=== PATIENT | female | born 1965 | race Caucasian/White ===

== ENCOUNTER 2018-07-15 19:34 | Emergency (ER) | payer OTHER ==
[2018-07-15 20:10] VITALS: BP 146/65
[2018-07-15] MEDS ORDERED: Ibuprofen TAB* 600 MG PO ONE (20:31)
--- NOTE | 2018-07-15 20:34 | UC ---
Respiratory Complaint HPI - HPI Summary HPI Summary: 53 yo woman with diabetes, with onset of fever and malaise yesterday. She has the care of her 2 granddaughters, who are with her this evening; states that they spent the day with a friend where she rested and the children had care. States that she feels dizzy, unwell, and she has a headache, along with cough and congestion. History of diabetes, on metformin alone and does not know how well her glucose is controlled. Coughing, and has bouts of dry heaves and brings up sputum. - History of Current Complaint Chief Complaint: UCRespiratory Stated Complaint: FEVER,COUGH Time Seen by Provider: 07/15/18 20:25 Hx Obtained From: Patient Hx Last Menstrual Period: n/a Onset/Duration: Gradual Onset, Lasting Days - 2 Pain Intensity: 7 Character: Cough: Nonproductive Aggravating Factors: Nothing Alleviating Factors: Nothing Associated Signs And Symptoms: Positive: Dyspnea, Fever, Chills, Nasal Congestion - Risk Factors Pulmonary Embolism Risk Factors: Negative Cardiac Risk Factors: Diabetes Pseudomonas Risk Factors: Negative Tuberculosis Risk Factors: Negative - Allergies/Home Medications Allergies/Adverse Reactions: Allergies Allergy/AdvReac Type Severity Reaction Status Date / Time other medications Allergy Unknown Uncoded 07/15/18 20:11 Reaction Details sulfa drugs Allergy Anaphylatic Uncoded 07/15/18 20:11 Shock Home Medications: Home Medications Citalopram TAB* [CeleXA TAB*] 20 mg PO DAILY 07/15/18 [History Confirmed ] Cyanocobalamin TAB* [Vitamin B12 TAB*] 500 mcg PO DAILY 07/15/18 [History Confirmed 07/15/18] Levothyroxine Sodium [Levoxyl] 0 mcg PO DAILY 07/15/18 [History Confirmed ] Omeprazole CAP (NF) [Prilosec CAP* 20 MG] 20 mg PO DAILY 07/15/18 [History Confirmed 07/15/18] Other Meds Pt Cannot Recall 07/15/18 [History] metFORMIN* [Glucophage 500 MG TAB *] 500 mg PO DAILY 07/15/18 [History Confirmed 07/15/18] PMH/Surg Hx/FS Hx/Imm Hx - Additional Past Medical History Additional PMH: reports many allergies but does not know what they are, but reports as severe. Endocrine History: Diabetes, Hypothyroidism Psychological History: Bipolar Disorder - Surgical History Surgical History: Yes Surgery Procedure, Year, and Place: ear tubes - Family History Known Family History: Positive: Non-Contributory - Social History Occupation: Employed Full-time - has care of her grandchildren Lives: With Family Alcohol Use: None Substance Use Type: None Smoking Status (MU): Never Smoked Tobacco Review of Systems All Other Systems Reviewed And Are Negative: Yes Constitutional: Positive: Fever, Chills, Fatigue Skin: Positive: Negative Eyes: Positive: Negative ENT: Positive: Sinus Congestion Respiratory: Positive: Shortness Of Breath, Cough Cardiovascular: Positive: Other - feels dizzy and unwell Gastrointestinal: Positive: Nausea Genitourinary: Positive: Other - urinary incontinence Motor: Positive: Weakness - generalized Musculoskeletal: Positive: Myalgia Neurological: Positive: Headache Psychological: Positive: Other - just got custody of her grandchildren yesterday , feels spent and exhausted by the custody fight against the father of the children Is Patient Immunocompromised?: No Physical Exam Triage Information Reviewed: Yes Appearance: Ill-Appearing - looks unwell, unkempt, hydration ok, mildly tachycardic., Obese, Other: - blood sugar 152 Vital Signs: Initial Vital Signs Temp 101.3 F 07/15/18 20:05 Pulse 106 07/15/18 20:05 Resp 18 07/15/18 20:05 BP 146/65 07/15/18 20:05 Pulse Ox 98 07/15/18 20:05 Eyes: Positive: Conjunctiva Clear ENT: Positive: Pharynx normal, TMs normal Neck: Positive: Supple, Nontender, No Lymphadenopathy Respiratory: Positive: Decreased breath sounds, Rhonchi - coarse crackles both lungs. Cardiovascular: Positive: No Murmur, Tachycardia Neurological: Positive: Alert, Muscle Tone Normal Psychological Exam: Other - depressed mood and affect. Skin Exam: Normal Diagnostics - Radiology No standard instances Radiology Interpretation Completed By: ED Physician Summary of Radiographic Findings: chest xray, possible left lower lobe pneumonia Respiratory Course/Dx - Course Course Of Treatment: given zofran for nausea, ibuprofen for fever. Equivocal chest xray and medications allergies are not known but has had problems with a number of antibiotics. Exhausted emotionally. - Differential Dx/Diagnosis Differential Diagnosis/HQI/PQRI: Bronchitis, Influenza, Lower Resp Infection, Sinusitis Provider Diagnosis: Fever and chills Discharge - Sign-Out/Discharge Documenting (check all that apply): Patient Departure All imaging exams completed and their final reports reviewed: No - Discharge Plan Condition: Stable Disposition: HOME Patient Education Materials: Viral Syndrome (ED) Referrals: Manjit Kenny MD [Primary Care Provider] - Additional Instructions: It is possible that there is an early pneumonia on your chest xray; given your history of allergies, we will get your record from [facility] AND wait confirmatory chest xray read at this time. You will get a phone call tomorrow. Your sister will help with the care of the children tonight. Continue ibuprofen for fever and headache, and work on staying hydrated. You have been given zofran as an antinauseant. - Billing Disposition and Condition Condition: STABLE Disposition: Home
[2018-07-15 20:58] LABS: Influenza A Molecular NEGATIVE (Negative); Influenza B Molecular NEGATIVE (Negative)
[2018-07-15] MEDS ORDERED: Ondansetron ODT TAB* 4 MG PO ONE (21:12)
--- NOTE | 2018-07-16 09:22 | UC ---
- Progress Note Progress Note: possible LLL infiltrate biaxin 250 BID x 7 days - EKG/XRAY/CT XRAY: chest - ATELECTASIS VERSUS INFILTRATE AT THE LEFT LUNG BASE. Course/Dx - Diagnoses Provider Diagnoses: Fever and chills Discharge - Sign-Out/Discharge Documenting (check all that apply): Patient Departure All imaging exams completed and their final reports reviewed: Yes - Discharge Plan Condition: Stable Disposition: HOME Patient Education Materials: Viral Syndrome (ED) Referrals: Manjit Kenny MD [Primary Care Provider] - Additional Instructions: It is possible that there is an early pneumonia on your chest xray; given your history of allergies, we will get your record from [facility] AND wait confirmatory chest xray read at this time. You will get a phone call tomorrow. Your sister will help with the care of the children tonight. Continue ibuprofen for fever and headache, and work on staying hydrated. You have been given zofran as an antinauseant. - Billing Disposition and Condition Condition: STABLE Disposition: Home
== END 2018-07-15 22:10 | disposition home or self-care (01) ==
LOC: UCCORT 19:34
DX: R50.9 Fever, unspecified (principal); E11.9 Type 2 diabetes mellitus without complications; R53.81 Other malaise; R42 Dizziness and giddiness; R51 Headache; R05 Cough; R09.81 Nasal congestion; Z79.84 Long term (current) use of oral hypoglycemic drugs; Z88.8 Allergy status to other drugs, medicaments and biological substances; Z88.2 Allergy status to sulfonamides
CPT/HCPCS: 71046; 99211; A9270-GY; G0463

== ENCOUNTER 2018-09-16 11:05 | Emergency (ER) | payer OTHER ==
[2018-09-16 11:20] VITALS: BP 125/68
--- NOTE | 2018-09-16 11:26 | UC ---
Throat Pain/Nasal Ze HPI - HPI Summary HPI Summary: 53-year-old female who has had a sore throat for just 1 day. She denies fever however as she is here she states she feels that she has a fever. - History of Current Complaint Chief Complaint: UCGeneralIllness Stated Complaint: SORE THROAT EARS Time Seen by Provider: 09/16/18 11:26 Hx Obtained From: Patient Hx Last Menstrual Period: n/a ?: No Onset/Duration: Gradual Onset Severity: Moderate Pain Intensity: 7 Cough: None Associated Signs & Symptoms: Positive: Other - Patient states she feels like she has a fever. - Allergies/Home Medications Allergies/Adverse Reactions: Allergies Allergy/AdvReac Type Severity Reaction Status Date / Time doxycycline Allergy Unknown Hives Verified 07/15/18 22:46 ibuprofen Allergy Unknown itching, Verified 07/15/18 22:46 swelling metronidazole Allergy Unknown Hives Verified 07/15/18 22:46 Penicillins Allergy Unknown yeast Verified 07/15/18 22:46 infection Tetracyclines Allergy Unknown Unknown Verified 07/15/18 22:46 Reaction Details sulfa drugs Allergy Anaphylatic Uncoded 07/15/18 20:11 Shock Home Medications: Home Medications Magnesium [Magnesium Elemental] 30 mg PO DAILY 09/16/18 [History Confirmed 09/16] PMH/Surg Hx/FS Hx/Imm Hx Previously Healthy: Yes GI/ History: Gastroesophageal Reflux Psychological History: Depression, Bipolar Disorder - Surgical History Surgical History: Yes Surgery Procedure, Year, and Place: ear tubes - Family History Known Family History: Positive: Non-Contributory - Social History Alcohol Use: None Substance Use Type: None Smoking Status (MU): Never Smoked Tobacco Review of Systems All Other Systems Reviewed And Are Negative: Yes ENT: Positive: Sore Throat Is Patient Immunocompromised?: No Physical Exam Triage Information Reviewed: Yes Appearance: Well-Appearing, No Pain Distress, Well-Nourished Vital Signs: Initial Vital Signs Temp 98.7 F 09/16/18 11:13 Pulse 91 09/16/18 11:13 Resp 20 09/16/18 11:13 BP 125/68 09/16/18 11:13 Pulse Ox 98 09/16/18 11:13 Vital Signs Reviewed: Yes Eyes: Positive: Conjunctiva Clear ENT: Positive: Hearing grossly normal, Pharyngeal erythema, TMs normal, Tonsillar swelling, Uvula midline, Other - Both tonsils have the appearance of thrush however there is no other evidence on her buccal mucosa. Neck: Positive: Supple, Nontender, No Lymphadenopathy Respiratory: Positive: Lungs clear, Normal breath sounds, No respiratory distress, No accessory muscle use Cardiovascular: Positive: RRR, No Murmur, Pulses Normal, Brisk Capillary Refill Musculoskeletal Exam: Normal Neurological Exam: Normal Psychological Exam: Normal Skin Exam: Normal Throat Pain/Nasal Course/Dx - Course Course Of Treatment: Rapid strep test: positive - Differential Dx/Diagnosis Provider Diagnosis: Strep pharyngitis Discharge - Sign-Out/Discharge Documenting (check all that apply): Patient Departure All imaging exams completed and their final reports reviewed: No Studies - Discharge Plan Condition: Fair Disposition: HOME Prescriptions: Amoxicillin PO (*) [Amoxicillin 875 MG (*)] 875 mg PO BID 10 Days #20 tab Fluconazole 150 MG TAB* [Diflucan 150 MG TAB*] 150 mg PO ONCE 1 Days #1 tablet predniSONE [Prednisone 20 MG TAB] 40 mg PO DAILY 5 Days #10 tablet Patient Education Materials: Strep Throat (DC) Referrals: Manjit Kenny MD [Primary Care Provider] - Additional Instructions: Increase fluids, if you feel like your starting have a yeast infection take the Diflucan and then may repeat in 1 week if necessary. If you do not feel like you are having yeast infection that you do not need start the Diflucan. Follow- up with your primary care provider as needed over the next 2 or 3 days if no improvement. - Billing Disposition and Condition Condition: FAIR Disposition: Home
[2018-09-16] MEDS ORDERED: Acetaminophen TAB* 325 MG PO ONE (11:49)
== END 2018-09-16 12:01 | disposition home or self-care (01) ==
LOC: UCCORT 11:05
DX: J02.0 Streptococcal pharyngitis (principal); Z88.6 Allergy status to analgesic agent; Z88.1 Allergy status to other antibiotic agents; Z88.0 Allergy status to penicillin; Z88.2 Allergy status to sulfonamides
CPT/HCPCS: 87651; 99212; A9270-GY; G0463